=== PATIENT | female | born 1985 | race Caucasian/White ===

== ENCOUNTER 2019-01-25 09:56 | Inpatient (IN) | payer MEDICAID ==
[~2019-01-25] VITALS: Ht 160 cm; Wt 71.2 kg
[~2019-01-25 09:56] MED LIST: CLC1500T PO; FER325 PO; PRENAT PO
[2019-01-25 10:01] VITALS: Ht 160 cm; Wt 71.2 kg
--- NOTE | 2019-01-25 10:14 | TRIAGE ---
OB Triage Datetime Report Generated by CPN: 01/25/2019 10:14 Datetime: 01/25/2019 10:07 Vaginal Exam Dilatation (cms): 3.0 Effacement (%): 80 Station: -2 Exam By: KARL KIDD Vaginal Bleeding: None Cervix, Consistency: Soft Cervix, Position: Posterior Datetime: 01/25/2019 10:00 Assessment Type: Triage Maternal Assessment Level of Consciousness: Fully Conscious DTR's/Clonus: DTRs 2+; No Clonus Headache: Denies Blurred Vision: No Respiratory Effort: Unlabored; Regular Rhythm; Equal Expansion Breath Sounds, Left: Clear and Equal Breath Sounds, Right: Clear and Equal Nausea/Vomiting: Denies RUQ Epigastric Pain: Denies Lower Extremities Edema: None Degree: None Upper Extremities Edema: None Degree: None Facial Edema: None Fall Risk Assessment History of Falling: (0) No Secondary Diagnosis: (0) No Ambulatory Aid: (0) Bedrest/Nurse Assist IV Therapy: (0) No Gait: (0) Normal/Bedrest/Immobile Mental Status: (0) Oriented to Own Ability Fall Score: 0 Fall Risk Score Definition: No Risk: No action required Datetime: 01/25/2019 09:59 Arrived By: Ambulatory Arrived From: Office Chief Complaint: PT CAME IN FROM CLINIC FOR POSTDATES NST, BPP AND EFM Movement: Present Contractions: Denies/Absent Rupture of Membranes: Denies Vaginal Discharge: Denies Recent Sexual Intercouse: Denies Abdominal Trauma: Not Applicable Additional Patient Complaints: NONE Time Provider Notified: 01/25/2019 10:09 Provider Notified: CRISTI Initial Plan: NST, BPP AND EFW
[2019-01-25] MEDS ORDERED: LACTATED RINGER'S 1,000 ML IV SCH (10:33)
[2019-01-25] MEDS ORDERED: LACTATED RINGER'S 1,000 ML IV PRN (10:36)
[2019-01-25 10:37] VITALS: BP 123/78; PULSE 98
[2019-01-25] MEDS ORDERED: LIDOCAINE 1% (MPF) 30 ML INJ INJ PRN (11:00)
[2019-01-25] MEDS ORDERED: OXYCODONE/ASPIRIN (4.88/325) TAB PO PRN ×3 (11:00→21:30)
[2019-01-25] MEDS ORDERED: BUTORPHANOL 2 MG INJ IV PRN (11:00)
[2019-01-25] MEDS ORDERED: OXYTOCIN 30 UNITS/LR 500 ML IV SCH ×3 (11:00)
[2019-01-25] MEDS ORDERED: OXYTOCIN 30 UNITS/LR 500 ML IV PRN ×3 (11:00→21:30)
[2019-01-25] MEDS ORDERED: METHYLERGONOVINE 0.2 MG INJ IM PRN ×3 (11:00→21:30)
[2019-01-25] MEDS ORDERED: CARBOPROST 250 MCG INJ IM PRN ×3 (11:00→21:30)
[2019-01-25] MEDS ORDERED: AMPICILLIN 2 GM/NS (PMX) 100 ML IV ONE (11:00)
[2019-01-25] MEDS ORDERED: IBUPROFEN 600 MG TAB PO PRN (11:00)
[2019-01-25] MEDS ORDERED: MISOPROSTOL 200 MCG TAB PR PRN ×3 (11:00→21:30)
[2019-01-25] MEDS ORDERED: AMPICILLIN 1 GM/NS (PMX) 50 ML IV SCH (14:30)
--- NOTE | 2019-01-25 19:42 | HP ---
Date/Time of Note Date/Time of Note DATE: 01/25/19 TIME: 19:40 OB - History Hx of Present Free Text/Dictation 33 years old 2 para 1-0-0-1 with single intrauterine at 40 weeks and 1 day with CIELO of 01/24/2019 complaining of uterine contractions. She states good movement. She denies nausea, vomiting, shortness of breath, chest pain, headache, visual changes, vaginal bleeding or LOF. Chief Complaint: Uterine contraction Estimated Due Date: Jan 24, 2019 : 2 Para: 1 Spontaneous : 0 Therapeutic : 0 Care: Good Care Ultrasounds: Normal mid trimester US Obstetrical Complications: None Medical Complications: None Past Family/Social History * Past Medical, Surgical, Family and Obstetric Histories reviewed from chart. Blood Type: O+ Rubella: immune RPR/VDRL: Negative GBS Status: Positive HBsAG: Negative OB Admission Exam Vital Signs Vital Signs Vital Signs Date Temp Pulse Resp B/P (MAP) Pulse Ox O2 O2 Flow FiO2 Time Delivery Rate 01/25/19 98.2 98 123/78 Room Air 10:37 (93) Physical Exam HEENT: WNL Heart: Rhythm Normal Abdomen: WNL Extremities: Normal Reflexes: Normal Cervical Dilatation: 3cm Effacement: 75% Station: -2 Membranes: Intact Heart Rate: 130's Accelerations: Accelerations Present Decelerations: No Decelerations Varibility: Moderate Contractions on Admission: < 5 Minutes Apart Intensity: Moderate Last 72 hours Lab Results CBC & BMP 01/25/19 11:10 OB Assessment/Plan Other plan: 33-year 2 para 1-0-0-1 at 40 weeks and 1 day in active labor - FHR: No sign of metabolic acidosis- Category I - Continuous EFM, toco - CBC, blood type and screen - Analgesia options with R/B/A discussed in detail with patient - Epidural per patient request - Please see the orders - O+/Rubella: Immune - GBS: Positive, ampicillin ordered Admission, procedures, expectations, risks and possible complications have been discussed in detail with the patient. Risk of vaginal delivery including but not limited to bleeding, infection, cervical laceration, placental retention, injury to fetus, blood transfusion, blood transfusion related infection, risk of anesthesia, adhesion, cervical laceration, episiotomy/laceration, possible delivery with risk of bleeding, infection, injury to other organs (bowel, bladder, ureter, vessels, nerves), injury to fetus, blood transfusion, blood transfusion related infection, risk of anesthesia, scar and hernia formation, needs for future , removal of uterus or any other indicated surgery discussed with the patient. She expressed understanding and repeats the risks. All of her questions were answered. She signed the informed consent. PHYSICIAN'S VERIFICATION OF INFORMED CONSENT The patient was counseled regarding the procedure, its indications, risks, potential complications and alternatives and any questions were answered. Consent was obtained. PLANNED PROCEDURE/TREATMENT: Vaginal delivery, episiotomy, repair of laceration possible delivery BERTHA COLIN Jan 25, 2019 19:42
--- NOTE | 2019-01-25 19:46 | LDN ---
Date/Time of Note Date/Time of Note DATE: 01/25/19 TIME: 19:42 Delivery Summary 33-year-old 2 para 1-0-0-1 with single intrauterine at 40 weeks and 1 day delivered a viable male over median episiotomy at 16:57. Nose and mouth suctioned. There was nuchal cord x1 which reduced. Rest of body delivered. Cord clamped and cut after stopping pulsation. Baby given to the nurse. Placenta delivered spontaneously and intact with three-vessel cord. Episiotomy repaired with 2-0 Vicryl. Patient tolerated procedure well Weight 8 pounds 9 at 1 minutes and 9 at 5 minutes EBL 300 mL Weeks of Gestation 40 weeks and 1 day Placenta Delivered: Spontaneously Meconium: Light Episiotomy: Yes (Median episiotomy) Anesthesia type: Epidural Estimated blood loss: 300 Sponge & Needle done & correct: Yes All needle counts correct: Yes Any foreign bodies felt in the: No (In vagina) Infant Delivery Information Sex Infant Sex: male Apgars 1 Minute: 9 5 Minute: 9 10 Minute: 10 Suctioning Nose & mouth suctioned at magy: Yes Umbilical Cord Umbilical cord with: 3 Vessels Cord presentations: nuchal cord Nuchal cord present X: 1 Cord Blood was obtained: Yes Mother & Baby Disposition Disposition Mom & Baby to Maternity; Good: Yes BERTHA COLIN Jan 25, 2019 19:46
[2019-01-25 21:00] VITALS: BP 106/60; PULSE 73; RESP 18
[2019-01-25] MEDS ORDERED: DEXTROSE 5%-LR 1,000 ML IV SCH (21:18)
[2019-01-25] MEDS: DEXTROSE 5%-LR 1,000 ML IV SCH (21:18)
[2019-01-25] MEDS: LACTATED RINGER'S 1,000 ML IV* SCH ×2 (21:18)
[2019-01-25] MEDS ORDERED: ACETAMINOPHEN 325 MG TAB PO PRN ×2 (21:30)
[2019-01-25] MEDS ORDERED: WITCH HAZEL/GLYCERIN PAD PR PRN ×2 (21:30)
[2019-01-25] MEDS ORDERED: LANOLIN HPA 1 PKT TOP PRN ×2 (21:30)
[2019-01-25] MEDS ORDERED: SENNA/DOCUSATE NA (8.6MG/50MG) TAB PO PRN ×2 (21:30)
[2019-01-25] MEDS ORDERED: DIBUCAINE 1% 30 GM OINT TOP PRN ×2 (21:30)
[2019-01-25] MEDS ORDERED: DIPHENHYDRAMINE 50 MG INJ IV PRN ×2 (21:30)
[2019-01-25] MEDS ORDERED: ONDANSETRON 4 MG INJ IV PRN ×2 (21:30)
[2019-01-25] MEDS ORDERED: MAGNESIUM HYDROXIDE 30ML CUP PO PRN (21:30)
[2019-01-25] MEDS ORDERED: BENZOCAINE 20% 56 ML SPRAY TOP PRN ×2 (21:30)
[2019-01-25] MEDS ORDERED: ZOLPIDEM 5 MG TAB PO PRN ×2 (21:30)
[2019-01-26] VITALS: BP 94/58; PULSE 65; RESP 18
[2019-01-26] MEDS ORDERED: IBUPROFEN 600 MG TAB PO SCH
[2019-01-26 04:00] VITALS: BP 104/59; PULSE 64; RESP 18
[2019-01-26] MEDS: DEXTROSE 5%-LR 1,000 ML IV SCH (05:18)
[2019-01-26] MEDS: LACTATED RINGER'S 1,000 ML IV* SCH ×2 (05:18)
[2019-01-26] MEDS: IBUPROFEN 600 MG TAB PO SCH ×4 (06:23→18:12)
[2019-01-26 08:00] VITALS: BP 96/57; PULSE 64; RESP 17
[2019-01-26] MEDS ORDERED: MAGNESIUM HYDROXIDE 30ML CUP PO SCH (09:00)
[2019-01-26 15:50] VITALS: BP 107/59; PULSE 72; RESP 18
[2019-01-26 20:00] VITALS: BP 98/63; PULSE 71; RESP 18
--- NOTE | 2019-01-26 21:18 | PN ---
Date/Time of Note Date/Time of Note DATE: 01/26/19 TIME: 21:18 OB Subjective Subjective Subjective PPD# 1 Patient is doing well. She denies nausea, vomiting, shortness of breath, chest pain, headache. She has been ambulating without difficulty, tolerating regular diet. Pain is well controlled on current medications OB Objective Objective Objective VS - Last 72 Hours, by Label Date Temp Pulse Resp B/P (MAP) Pulse Ox O2 O2 Flow FiO2 Time Delivery Rate 01/27/19 98.3 67 18 116/75 Room Air 08:30 (89) 01/27/19 98.2 17 97/61 (73) Room Air 04:00 01/26/19 98.3 71 18 98/63 (75) Room Air 20:00 01/26/19 98.4 72 18 107/59 15:50 (75) 01/26/19 98.2 64 17 96/57 (70) Room Air 08:00 01/26/19 98.0 64 18 104/59 Room Air 04:00 (74) 01/26/19 98.2 65 18 94/58 (70) Room Air 00:00 01/25/19 98.8 73 18 106/60 Room Air 21:00 (75) 01/25/19 98.2 98 123/78 Room Air 10:37 (93) General: AAO X 3, comfortable, NAD, appropriate mood and affect. ABD: +BS. Soft, non-tender. Uterus 2 cm below umbilicus Flank: No CVA tenderness (B/L) LE: Mild edema. No clubbing, cyanosis, thigh or calf tenderness (B/L). Homans 'sign is negative OB Assessment/Plan Other plan: 33-year-old 2 para 2-0-0-2 s/p normal vaginal delivery at 40 weeks and 1 day. PPD#1 - AF, VSS - Contraception methods with R/B/A/FR discussed - Continue care - Discharge home tomorrow - Rx and instruction given - Follow up in 2 and 6 weeks at clinic BERTHA COLIN Jan 26, 2019 21:18
[2019-01-27] MEDS: IBUPROFEN 600 MG TAB PO SCH ×3 (00:37→12:21)
[2019-01-27 04:00] VITALS: BP 97/61; RESP 17
[2019-01-27 08:30] VITALS: BP 116/75; PULSE 67; RESP 18
[2019-01-27] MEDS ORDERED: MEASLES,MUMPS,RUBELLA VACCINE INJ SC* ONE (09:00)
[2019-01-27] MEDS ORDERED: DIPHTH/TET/ACEL PERTUSS (ADULT) 0.5 ML VIAL IM* ONE (09:00)
--- NOTE | 2019-01-27 09:52 | DS ---
Date/Time of Note Date/Time of Note DATE: 01/27/19 TIME: 09:51 Obstetrical Discharge Record Final Diagnosis Final Diagnosis: Term delivered Other Final Diagnosis 33-year-old 2 para 2-0-0-2 s/p normal vaginal delivery at 40 weeks and 1 day. PPD#2 - AF, VSS - Contraception methods with R/B/A/FR discussed - Continue care - Discharge home tomorrow - Rx and instruction given - Follow up in 2 and 6 weeks at clinic 2) mild thrombocytopenia: She currently has no symptom. Follow-up CBC in 1 week Condition on Discharge Physical Assessment Last Vitals: Vital Signs Date Temp Pulse Resp B/P (MAP) Pulse Ox O2 O2 Flow FiO2 Time Delivery Rate 01/27/19 98.3 67 18 116/75 Room Air 08:30 (89) Voiding: Yes Bowel Movement: Yes Breast: Soft, non-tender Fundus: Firm Calf Tenderness: No Patient Condition: Stable BERTHA COLIN Jan 27, 2019 09:52
--- NOTE | 2019-01-28 15:49 | DELSUM ---
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 Babies in Womb: 1 Attempted: No Labor Anesthesia: None LABOR INFORMATION Reason for Induction: Not Applicable Onset of Labor: 01/25/2019 11:00 Complete Dilatation: 01/25/2019 16:36 Oxytocin: N/A Group B Beta Strep: Positive Antibiotics # of Doses: 2 Antibiotics Time of Last Dose: 01/25/2019 15:00 Steroids Given: None Reason Steroids Not Administered: Not Applicable MEMBRANES Membranes Rupture Method: Artificial Rupture of Membranes: 01/25/2019 16:55 Length of Rupture (hr): 0.03 Amniotic Fluid Color: Light Meconium Amniotic Fluid Amount: Small Amniotic Fluid Odor: None STAGES OF LABOR Stage 1 hr: 5 Stage 1 min: 36 Stage 2 hr: 0 Stage 2 min: 21 Stage 3 hr: 0 Stage 3 min: 3 Total Time in Labor hr: 6 Total Time in Labor min: 0 VAGINAL DELIVERY Episiotomy: Median Laceration Extension: N/A Laceration Type: None Laceration Repair: Not Applicable Initial Vag Sponge Count: 10 Final Vag Sponge Count: 20 Initial Vag Sharps Count: 1 Final Vag Sharps Count: 1 Sponge Count Correct: Yes; Vaginal Sweep Performed Sharps Count Correct: Yes BABY A INFORMATION Infant Delivery Date/Time: 01/25/2019 16:57 Method of Delivery: Vaginal Born in Route : No : N/A Forceps: N/A Vacuum Extraction: N/A Shoulder Dystocia : N/A SHOULDER DYSTOCIA BABY A Delivery Date/Time: 01/25/2019 16:57 PRESENTATION/POSITION BABY A Presentation: Cephalic Cephalic Presentation: Vertex Vertex Position: Right Occipital Anterior Breech Presentation: N/A PLACENTA INFORMATION BABY A Placenta Delivery Time : 01/25/2019 17:00 Placenta Method of Delivery: Spontaneous Placenta Status: Delivered SCORES BABY A Heart Rate 1 min: >100 bpm Resp Effort 1 min: Good Cry Reflex Irritability 1 min: Cough/Sneeze/Pulls Away Muscle Tone 1 min: Active Motion Color 1 min: Body [place], Extremit Blue Resuscitation Effort 1 min: Tactile Stimulation SCORE 1 MIN: 9 Heart Rate 5 min: >100 bpm Resp Effort 5 min: Good Cry Reflex Irritability 5 min: Cough/Sneeze/Pulls Away Muscle Tone 5 min: Active Motion Color 5 min: Body [place], Extremit Blue Resuscitation Effort 5 min: Tactile Stimulation SCORE 5 MIN: 9 INFORMATION BABY A Gestational Age at Delivery: 40.1 Gestational Status: Full Term- 39- 40.6 Weeks Infant Outcome : Liveborn Condition : Stable Infant Sex: Male IDENTIFICATION/MEDS BABY A ID Band Number: [id number] ID Band Location: Right Leg; Left Arm Sensor Number: [id number] Sensor Location : Cord Clamp Vitamin K Given : Not Given Erythromycin Given: Not Given WEIGHT/LENGTH BABY A Birthweight (gm): 3620 Weight (lb): 8 Weight (oz): 0 Length (in): 19.50 Infant Length (cm): 49.53 CORD INFORMATION BABY A No. 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
== END 2019-01-27 15:48 | disposition home or self-care (01) | DRG 807 ==
LOC: OBT 09:56 → L-D 09:58 → OBT 10:09 → L-D 10:09 → PP1 20:49
PROVIDERS: ADMIT Obstetrics & Gynecology; ATTEND Obstetrics & Gynecology
PROC: 10E0XZZ Delivery of Products of Conception, External Approach (ICD-10-PCS; principal; 2019-01-25)
PROC: 0W8NXZZ Division of Female Perineum, External Approach (ICD-10-PCS; 2019-01-25)
DX: O48.0 Post-term pregnancy (principal); O72.3 Postpartum coagulation defects; O69.81X0 Labor and delivery complicated by cord around neck, without compression, not applicable or unspecified; D69.6 Thrombocytopenia, unspecified; Z3A.40 40 weeks gestation of pregnancy; Z37.0 Single live birth
CPT/HCPCS: 76815; 76818; 80307; 85025; 85610; 85730; 86592; 86850; 86900; 86901; 87340; 99464; G0463; J0290; J2590; J7120; J7121